=== PATIENT | male | born 1970 | race African-American/Black ===

== ENCOUNTER 2023-06-05 12:02 | Emergency (ER) | payer BC ==
[2023-06-05] MEDS ORDERED: Ketorolac Tromethamine 30 MG (1 mL) VIAL ONE (12:56)
== END 2023-06-05 13:00 | disposition home or self-care (01) ==
LOC: ERS 12:02
DX: S62.630A Displaced fracture of distal phalanx of right index finger, initial encounter for closed fracture (principal); K05.20 Aggressive periodontitis, unspecified; F17.200 Nicotine dependence, unspecified, uncomplicated; I10 Essential (primary) hypertension; Z79.899 Other long term (current) drug therapy; W23.1XXA Caught, crushed, jammed, or pinched between stationary objects, initial encounter; Y93.67 Activity, basketball
CPT/HCPCS: 10060; 96372; J1885